=== PATIENT | male | born 1970 | race Two or more races ===

== ENCOUNTER 2018-01-24 13:31 | Inpatient (IN) | payer SELFPAY ==
[~2018-01-24] VITALS: Ht 177.8 cm; Wt 84.2 kg
[2018-01-24] MEDS ORDERED: SODIUM CHLORIDE 0.9% 1,000 ML IVB ONE (13:43)
[2018-01-24] MEDS ORDERED: MORPHINE SULFATE 4 MG/ML SYR/VIAL IV ONE ×2 (13:45→18:00)
[2018-01-24] MEDS ORDERED: cefTRIAXone 1GM/10ml StH20 or NS KIT IVpush IV ONE (13:45)
[2018-01-24] MEDS ORDERED: ONDANSETRON HCL 4 MG/2 ML VIAL IV ONE (13:45)
[2018-01-24] MEDS ORDERED: SODIUM CHLORIDE 0.9% 1,000 ML IV ONE (13:45)
[2018-01-24 14:53] LABS: Basophils # (auto) 0 uL; Basophils % (auto) 0.1 % (0.0-2.0); Eosinophils # (auto) 0 uL; Hematocrit 47.5 % (41.0-53.0); Hemoglobin 16.3 g/dL (13.5-17.5); Lymphocytes # (auto) 0.7 uL; Lymphocytes % (auto) 4.4 % (10.0-50.0); Mean Corpuscular Hemoglobin 30.8 pg (28.0-32.0); Mean Corpuscular Hgb Conc. 34.3 g/dL (32.0-36.0); Mean Corpuscular Volume 89.9 fL (80.0-100.0); Monocytes # (auto) 1.1 uL; Neutrophils # (auto) 14.4 uL; Neutrophils % (auto) 88.5 % (37.0-80.0); Platelet Count (auto) 133 10^3/uL (140-450); Red Blood Cells 5.29 10^6/uL (4.5-5.90); White Blood Cell 16.3 10^3/uL (4.4-10.8)
[2018-01-24] MEDS ORDERED: PHENYLEPHRINE HCL 10 MG/ML VL IV ONE (15:04)
[2018-01-24 15:05] LABS: Partial Thromboplastin Time 25.4 sec (23.78-33.04); Prothrombin Time 10.7 sec (9.27-12.13)
[2018-01-24 15:11] LABS: Albumin 4.2 g/dL (3.4-5.0); BUN/Creatinine Ratio 7.4; Calcium 9.3 mg/dL (8.5-10.1); Potassium 3.7 mmol/L (3.5-5.1)
[2018-01-24 15:14] LABS: Bilirubin, Total 2.7 mg/dL (0.2-1.0); Total Protein 8.2 g/dL (6.4-8.2)
[2018-01-24] MEDS: SODIUM CHLORIDE 0.9% 1,000 ML IV SCH ×2 (15:26→23:08)
[2018-01-24] MEDS ORDERED: MORPHINE SULFATE 4 MG/ML SYR/VIAL IV PRN ×4 (15:30→17:00)
[2018-01-24] MEDS ORDERED: cefTRIAXone 1GM/10ml IVPUSH 10 ML IV ONE (15:30)
[2018-01-24] MEDS ORDERED: LORazepam 2MG/ML-1ML VIAL IV PRN (15:30)
[2018-01-24] MEDS ORDERED: ONDANSETRON HCL 4 MG/2 ML VIAL IV PRN (15:30)
[2018-01-24] MEDS ORDERED: NITROGLYCERIN 0.4 MG SL TAB SL PRN (15:30)
[2018-01-24] MEDS: metroNIDAZOLE 500MG/100ML 100 ML IV SCH ×2 (16:24→23:30)
[2018-01-24] MEDS: FAMOTIDINE (10MG/ML) 2ML VL IV SCH (16:24)
[2018-01-24] MEDS ORDERED: SUCCINYLCHOLINE CHLORIDE 20 MG/ML 10ML VIAL IV ONE (16:46)
[2018-01-24] MEDS ORDERED: MEPERIDINE HCL (50 MG/ML) 1 ML VIAL ONE (16:52)
[2018-01-24] MEDS ORDERED: fentaNYL CITRATE 100 MCG/2 ML VL ONE (16:52)
[2018-01-24] MEDS ORDERED: MIDAZOLAM HCL 1MG/1ML-2 ML VIAL ONE (16:54)
[2018-01-24] MEDS ORDERED: DEXAMETHASONE SOD PHOS 10MG/1ML VIAL INJ ONE (16:56)
[2018-01-24] MEDS ORDERED: ePHEDrine SULFATE 50 MG/ML AMP IV PRN (17:00)
[2018-01-24] MEDS ORDERED: MIDAZOLAM HCL 1MG/1ML-2 ML VIAL IV PRN (17:00)
[2018-01-24] MEDS ORDERED: HYDROmorphone HCL 2 MG/ML VL IV PRN (17:00)
[2018-01-24] MEDS ORDERED: LABETALOL HCL 5 MG/ML 4ML SYRINGE IV PRN (17:00)
[2018-01-24] MEDS ORDERED: ONDANSETRON HCL 4 MG/2 ML VIAL IV SCH (17:00)
[2018-01-24] MEDS ORDERED: ROCURONIUM 10MG/ML 10ML VIAL IV ONE (17:06)
[2018-01-24] MEDS ORDERED: PROPOFOL 10 MG/ML 20 ML IV ONE (17:06)
[2018-01-24] MEDS ORDERED: BUPIVACAINE 0.25% INJ 50ML VIAL ONE (17:11)
[2018-01-24] MEDS ORDERED: LIDOCAINE 1% HCL (LOCAL ANESTH.) INJ 20ML MDV ONE (17:11)
[2018-01-24] MEDS ORDERED: KETOROLAC TROMETH 30 MG/ML 1ML VIAL IV ONE (17:15)
[2018-01-24] MEDS ORDERED: GLYCOPYRROLATE 0.2 MG/ML 1ML VIAL ONE (17:33)
[2018-01-24] MEDS ORDERED: NEOSTIGMINE 1 MG/ML INJ (10mg/10ML VIAL) ONE (17:33)
[2018-01-24 17:34] LABS: Urine Bacteria NONE SEEN /hpf (None Seen); Urine Blood Negative /uL (Negative); Urine Mucus FEW (None Seen); Urine Specific Gravity 1.015 (1.001-1.035); Urine WBC <1 /hpf (0 - 3)
[2018-01-24 19:00] VITALS: BP 135/87
[2018-01-24 20:00] VITALS: BP 135/87
[2018-01-24 22:00] VITALS: BP 137/85
[2018-01-24] MEDS ORDERED: CYAN100T7 PO (22:44)
[2018-01-25] MEDS: SODIUM CHLORIDE 0.9% 1,000 ML IV SCH ×2 (03:03→16:15)
[2018-01-25] MEDS: FAMOTIDINE (10MG/ML) 2ML VL IV SCH ×2 (03:03→17:15)
[2018-01-25 05:00] VITALS: BP 134/78
[2018-01-25] MEDS: metroNIDAZOLE 500MG/100ML 100 ML IV SCH ×4 (06:09→23:57)
[2018-01-25 06:12] LABS: Basophils # (auto) 0 uL; Basophils % (auto) 0.1 % (0.0-2.0); Eosinophils # (auto) 0 uL; Hematocrit 41.5 % (41.0-53.0); Hemoglobin 14.4 g/dL (13.5-17.5); Lymphocytes # (auto) 0.8 uL; Lymphocytes % (auto) 5.5 % (10.0-50.0); Mean Corpuscular Hemoglobin 31.4 pg (28.0-32.0); Mean Corpuscular Hgb Conc. 34.7 g/dL (32.0-36.0); Mean Corpuscular Volume 90.6 fL (80.0-100.0); Monocytes # (auto) 0.8 uL; Monocytes % (auto) 5.4 % (0.0-12.0); Neutrophils # (auto) 13.3 uL; Nucleated Red Blood Cells % 0.1 %; Platelet Count (auto) 129 10^3/uL (140-450); Red Blood Cells 4.58 10^6/uL (4.5-5.90); Red Cell Distribution Width 13.6 % (11.8-14.3); White Blood Cell 14.9 10^3/uL (4.4-10.8)
[2018-01-25 06:34] LABS: Calcium 8.2 mg/dL (8.5-10.1); Potassium 3.8 mmol/L (3.5-5.1)
[2018-01-25 06:37] LABS: Albumin 3.1 g/dL (3.4-5.0); BUN/Creatinine Ratio 9.5
[2018-01-25 06:39] LABS: Bilirubin, Total 2.2 mg/dL (0.2-1.0); Total Protein 6.6 g/dL (6.4-8.2)
[2018-01-25 09:00] VITALS: BP 128/68
[2018-01-25] MEDS: cefTRIAXone 1GM/10ml IVPUSH 10 ML IV SCH (09:01)
[2018-01-25 12:00] VITALS: BP 118/70
[2018-01-25 16:41] VITALS: BP 131/85
[2018-01-25 22:00] VITALS: BP 141/79
[2018-01-26] MEDS: SODIUM CHLORIDE 0.9% 1,000 ML IV SCH ×2 (00:04→14:30)
[2018-01-26] MEDS: FAMOTIDINE (10MG/ML) 2ML VL IV SCH ×2 (03:29→15:43)
[2018-01-26 05:00] VITALS: BP 139/90
[2018-01-26] MEDS: metroNIDAZOLE 500MG/100ML 100 ML IV SCH ×3 (05:44→17:18)
[2018-01-26 06:32] LABS: Basophils # (auto) 0 uL; Basophils % (auto) 0.5 % (0.0-2.0); Eosinophils # (auto) 0 uL; Eosinophils % (auto) 0.1 % (0.0-7.0); Hematocrit 40.6 % (41.0-53.0); Hemoglobin 14.2 g/dL (13.5-17.5); Lymphocytes # (auto) 1.7 uL; Lymphocytes % (auto) 18.5 % (10.0-50.0); Mean Corpuscular Hemoglobin 31.9 pg (28.0-32.0); Mean Corpuscular Volume 91.3 fL (80.0-100.0); Monocytes # (auto) 0.6 uL; Monocytes % (auto) 6.8 % (0.0-12.0); Neutrophils % (auto) 74.1 % (37.0-80.0); Platelet Count (auto) 120 10^3/uL (140-450); Red Blood Cells 4.45 10^6/uL (4.5-5.90); Red Cell Distribution Width 13.5 % (11.8-14.3); White Blood Cell 9.4 10^3/uL (4.4-10.8)
[2018-01-26 07:16] LABS: BUN/Creatinine Ratio 7.9; Bilirubin, Total 1.7 mg/dL (0.2-1.0); Calcium 8.3 mg/dL (8.5-10.1); Magnesium 2.1 mg/dL (1.6-2.6); Potassium 3.6 mmol/L (3.5-5.1)
[2018-01-26 08:00] VITALS: BP 127/77
[2018-01-26 08:30] VITALS: BP 127/77
[2018-01-26] MEDS: cefTRIAXone 1GM/10ml IVPUSH 10 ML IV SCH (09:17)
[2018-01-26] MEDS ORDERED: METR500T PO (11:45)
[2018-01-26] MEDS ORDERED: LEVO500T21 PO (11:45)
[2018-01-26 12:20] VITALS: BP 113/71
[2018-01-26 17:14] VITALS: BP 132/80
[2018-01-26 22:00] VITALS: BP 123/75
[2018-01-27] MEDS: metroNIDAZOLE 500MG/100ML 100 ML IV SCH ×3 (00:06→12:26)
[2018-01-27] MEDS: FAMOTIDINE (10MG/ML) 2ML VL IV SCH ×2 (03:34→15:48)
[2018-01-27 05:00] VITALS: BP 120/69
[2018-01-27 08:00] VITALS: BP 115/70
[2018-01-27 08:15] VITALS: BP 115/70
[2018-01-27] MEDS: cefTRIAXone 1GM/10ml IVPUSH 10 ML IV SCH (08:58)
[2018-01-27 13:00] VITALS: BP 140/83
[2018-01-27] MEDS: SODIUM CHLORIDE 0.9% 1,000 ML IV SCH (15:49)
[2018-01-27 16:00] VITALS: BP 129/88
== END 2018-01-27 18:12 | disposition home or self-care (01) | DRG 853 ==
LOC: EDBD 13:31 → ER 13:33 → TELE 13:34 → TELE-EAST 15:55 → TELE-WESTW 18:56 → TELE-EAST 01-25 06:03
PROVIDERS: ADMIT Internal Medicine; ATTEND Internal Medicine
PROC: 0DTJ4ZZ Resection of Appendix, Percutaneous Endoscopic Approach (ICD-10-PCS; principal; 2018-01-26)
DX: A41.9 Sepsis, unspecified organism (principal); N17.0 Acute kidney failure with tubular necrosis; K35.80 Unspecified acute appendicitis; K76.0 Fatty (change of) liver, not elsewhere classified; D69.6 Thrombocytopenia, unspecified; D55.0 Anemia due to glucose-6-phosphate dehydrogenase [G6PD] deficiency; Z88.2 Allergy status to sulfonamides; Z88.8 Allergy status to other drugs, medicaments and biological substances
CPT/HCPCS: 36415; 74176; 80048; 80053; 81001; 82150; 82247; 83605; 83690; 83735; 85025; 85610; 85730; 86850; 86900; 86901; 87040; 93005; 96361; 96365; 96375; A6257; J0330; J0696; J1100; J2001; J2250; J2405; J2704; J3490